=== PATIENT | female | born 1945 | race Hispanic/Latino ===

== ENCOUNTER 2016-04-04 15:43 | Emergency (ER) | payer OTHER, BC ==
[~2016-04-04] VITALS: Ht 157.5 cm; Wt 65.0 kg
[~2016-04-04 15:43] MED LIST: EXFORGE 10/31 TABLET PO; MECLIZINE HCL25 M3 PO; PROCHLORPERAZINE5 MG PO; VITAMIN D250000 UNIT PO; WELCHOL625 MG PO; ZESTORETIC,P1 TABLE2 PO
[2016-04-04 16:25] LABS: HEMATOCRIT 35.6 % (36.0-46.0); MCH 28.6 PG (29.0-34.0); MCHC 35.4 G/DL (30.0-36.0); MCV 80.7 FL (83-99); MEAN PLAT.VOLUME 9.6 uM^3 (9.5-12.4); PLATELET COUNT 221 K/uL (156-360); RBC DIS.WIDTH-CV 12.3 % (11.8-14.6); RBC DIS.WIDTH-SD 35.4 % (39-53); RED BLOOD COUNT 4.41 M/uL (3.80-5.20); WHITE BLOOD COUNT 5.3 K/uL (4.1-10.2)
[2016-04-04 16:31] LABS: ADD MIUA? YES; BILIRUBIN NEGATIVE; BLOOD NEGATIVE; COLOR COLORLESS ((YELLOW)); GLUCOSE (STRIP) NEGATIVE; KETONES NEGATIVE; LEUKOCYTES TRACE; NITRITE NEGATIVE; PROTEIN (STRIP) NEGATIVE; SPECIFIC GRAVITY 1.003 (1.000-1.030); UROBILINOGEN 0.2 MG/DL (0.2-1.0)
[2016-04-04 16:45] LABS: CHLORIDE 107 mEq/L (99-109); POTASSIUM 3.3 mEq/L (3.7-5.4); SODIUM 142 mEq/L (136-147)
[2016-04-04 16:46] LABS: BACTERIA RARE /HPF; EPITHELIAL CELLS RARE /HPF; MUCUS TRACE /LPF; RED BLOOD CELLS 0-5 /HPF (0-5); UCUL ADDED? NO; WHITE BLOOD CELLS 0-5 /HPF (0-5)
[2016-04-04 16:47] LABS: GLUCOSE 104 mg/dL (70-99)
[2016-04-04 16:47] LABS: GRANULAR CASTS 0-5 /LPF
[2016-04-04 16:48] LABS: ANION GAP 13 MEQ/L (2-14)
[2016-04-04 16:51] LABS: GFR ESTIMATE (CALCULATED) > 59 mL/min/
[2016-04-04 16:52] LABS: UREA NITROGEN (BUN) 13 mg/dL (9-23)
[2016-04-04] MEDS ORDERED: ULTRACET1 TABLET PO (20:47)
[2016-04-04] MEDS ORDERED: BENTYL10 MG PO (20:47)
[2016-04-04] MEDS ORDERED: ZOFRAN4 MG PO (20:47)
[2016-04-04 21:07] VITALS: BP 146/54
== END 2016-04-04 21:08 | disposition home or self-care (01) ==
LOC: EME 15:43
PROVIDERS: Nurse Practitioner Family
DX: R10.2 Pelvic and perineal pain (principal); R11.2 Nausea with vomiting, unspecified
CPT/HCPCS: 74177; 80048; 81003; 85027; 99281; 99285; J2270; J2405; J7030

== ENCOUNTER 2017-06-16 19:48 | Emergency (ER) | payer OTHER, BC ==
[~2017-06-16] VITALS: Ht 160 cm; Wt 62.6 kg
[~2017-06-16 19:48] MED LIST changes: +BENTYL10 MG PO; +ULTRACET1 TABLET PO; +ZOFRAN4 MG PO
[2017-06-16 20:58] LABS: BASOPHIL (%) 0.4 % (0-1); EOSINOPHIL (%) 1.6 % (0-5); EOSINOPHIL COUNT 0.1 K/uL (0-0.3); HEMATOCRIT 33.9 % (36.0-46.0); HEMOGLOBIN 11.3 G/DL (11.9-15.5); IMMATURE GRANULOCYTE (%) 0.4 % (0.0-0.7); LYMPHOCYTE (%) 29.2 % (15-42); LYMPHOCYTE COUNT 1.6 K/uL (1.0-2.8); MCH 28.2 PG (29.0-34.0); MCHC 33.3 G/DL (30.0-36.0); MCV 84.5 FL (83-99); MONOCYTE (%) 6.9 % (3-12); MONOCYTE COUNT 0.4 K/uL (0-0.8); NEUTROPHIL (%) 61.5 % (45-76); NEUTROPHIL COUNT 3.5 K/uL (1.8-6.4); PLATELET COUNT 205 K/uL (156-360); RBC DIS.WIDTH-CV 12.5 % (11.8-14.6); RBC DIS.WIDTH-SD 38.2 % (39-53); RED BLOOD COUNT 4.01 M/uL (3.80-5.20); WHITE BLOOD COUNT 5.6 K/uL (4.1-10.2)
[2017-06-16 21:14] LABS: ALBUMIN 4.3 g/dL (3.2-4.8); CHLORIDE 104 mEq/L (99-109); POTASSIUM 3.7 mEq/L (3.7-5.4); SODIUM 140 mEq/L (136-147)
[2017-06-16 21:16] LABS: GLUCOSE 105 mg/dL (70-99); TOTAL PROTEIN 7.1 g/dL (6.4-8.3)
[2017-06-16 21:18] LABS: TOTAL BILIRUBIN 0.3 mg/dL (0.0-1.0)
[2017-06-16 21:20] LABS: ALKALINE PHOSPHATASE 101 IU/L (3-129); CREATININE 0.8 mg/dL (0.6-1.3); GFR ESTIMATE (CALCULATED) > 59 mL/min/
[2017-06-16 21:21] LABS: AST (GOT) 15 IU/L (2-34); UREA NITROGEN (BUN) 13 mg/dL (9-23)
[2017-06-16 21:22] LABS: DIRECT BILIRUBIN 0.1 mg/dL (0.0-0.3)
[2017-06-16 21:23] LABS: ALT (GPT) 14 IU/L (3-49); LIPASE 34 U/L (1.0-51.0)
[2017-06-16 21:36] LABS: APPEARANCE CLEAR ((CLEAR)); BILIRUBIN NEGATIVE; BLOOD NEGATIVE; COLOR YELLOW ((YELLOW)); GLUCOSE (STRIP) NEGATIVE; KETONES NEGATIVE; LEUKOCYTES TRACE; NITRITE NEGATIVE; PROTEIN (STRIP) NEGATIVE; SPECIFIC GRAVITY 1.015 (1.000-1.030); UROBILINOGEN 0.2 MG/DL (0.2-1.0)
[2017-06-16 21:48] LABS: BACTERIA NONE SEEN /HPF; EPITHELIAL CELLS RARE /HPF; MUCUS TRACE /LPF; RED BLOOD CELLS 0-5 /HPF (0-5)
[2017-06-16] MEDS ORDERED: NORCO 5/3251 TABLET PO (22:59)
[2017-06-16] MEDS ORDERED: MOTRIN600 MG PO (22:59)
[2017-06-16] MEDS ORDERED: LIDODERM 5% P1 PATCH TD (23:00)
[2017-06-16 23:50] VITALS: BP 124/61
== END 2017-06-16 23:51 | disposition home or self-care (01) ==
LOC: EME 19:48
PROVIDERS: Physician Assistant
DX: M51.17 Intervertebral disc disorders with radiculopathy, lumbosacral region (principal); I10 Essential (primary) hypertension; E78.5 Hyperlipidemia, unspecified; Z85.3 Personal history of malignant neoplasm of breast; Z90.12 Acquired absence of left breast and nipple; Z90.710 Acquired absence of both cervix and uterus
CPT/HCPCS: 72131; 74176; 80048; 80076; 81003; 83690; 85025; 87086; 99281; 99283; J3010